=== PATIENT | female | born 1945 | race Caucasian/White ===

== ENCOUNTER → 2020-02-23 | Outpatient (CLI) | payer OTHER, MEDICARE ==
[~2020-02-23] MED LIST: CALCIUM + D3 E1 EACH PO; CLARITIN10 M3 PO; CLONAZEPAM0.25 MG PO; LISINOPRIL20 MG PO; MULTIVITAMINS PO; SUPER B COMPLE1 EAC2 PO; TOPROL XL100 MG PO; ZOCOR20 MG PO
== END ==
LOC: LAB 07:27
PROVIDERS: ATTEND Student in an Organized Health Care Education/Training Program
DX: Z01.812 Encounter for preprocedural laboratory examination (principal); Z20.828 Contact with and (suspected) exposure to other viral communicable diseases

== ENCOUNTER 2020-02-28 08:12 | Emergency (ER) | payer OTHER, MEDICARE ==
[~2020-02-28] VITALS: Ht 154.9 cm; Wt 70.3 kg
[~2020-02-28 08:12] MED LIST changes: -FISH OIL 1,0001 EAC9 PO
[2020-02-28] MEDS ORDERED: FISH OIL 1,0001 EAC9 PO (08:20)
[2020-02-28 10:17] VITALS: BP 163/77
== END 2020-02-28 10:17 | disposition home or self-care (01) ==
LOC: ER 08:12
DX: I10 Essential (primary) hypertension (principal); F41.0 Panic disorder [episodic paroxysmal anxiety]; E78.00 Pure hypercholesterolemia, unspecified; Z98.51 Tubal ligation status; Z90.711 Acquired absence of uterus with remaining cervical stump; Z79.899 Other long term (current) drug therapy

== ENCOUNTER → 2020-02-28 | Outpatient (CLI) | payer OTHER, MEDICARE ==
[~2020-02-28] VITALS: Ht 154.9 cm; Wt 70.3 kg
[~2020-02-28] MED LIST changes: +FISH OIL 1,0001 EAC9 PO
== END | disposition home or self-care (01) ==
LOC: GI 07:00
PROVIDERS: ATTEND Specialist
DX: Z12.11 Encounter for screening for malignant neoplasm of colon (principal); Z53.8 Procedure and treatment not carried out for other reasons; Z86.010 Personal history of colon polyps; Z98.890 Other specified postprocedural states; Z79.899 Other long term (current) drug therapy; I10 Essential (primary) hypertension; E78.00 Pure hypercholesterolemia, unspecified; F41.9 Anxiety disorder, unspecified; Z90.49 Acquired absence of other specified parts of digestive tract; Z98.51 Tubal ligation status; Z90.710 Acquired absence of both cervix and uterus; Z98.41 Cataract extraction status, right eye; Z98.42 Cataract extraction status, left eye